=== PATIENT | male | born 1960 ===

== ENCOUNTER 2025-04-05 09:00 | Day surgery (SDC) | payer OTHER ==
[2025-04-05] MEDS ORDERED: MIDAZOLAM HCL 2 MG/2 ML VIAL IV ONE (10:15)
[2025-04-05] MEDS ORDERED: DIPHENHYDRAMINE HCL 50 MG/ML VIAL 1ML IV ONE (10:15)
[2025-04-05] MEDS ORDERED: fentaNYL CITRATE 50 MCG/ML AMPUL IV PUSH ONE (10:15)
== END 2025-04-05 11:15 | disposition home or self-care (01) ==
LOC: AMB-ENDOS 09:00
PROVIDERS: ATTEND Internal Medicine
DX: D12.0 Benign neoplasm of cecum (principal); K63.5 Polyp of colon; K57.30 Diverticulosis of large intestine without perforation or abscess without bleeding